=== PATIENT | male | born 1970 | race Hispanic/Latino ===

== ENCOUNTER 2017-08-22 08:41 | Outpatient (CLI) | payer BC ==
--- NOTE | 2017-08-22 11:55 | XRay Report ---
XRAY LEFT KNEE 4 THREE VIEWS: 08/22/17 CLINICAL: Left knee pain. FINDINGS: Mild osteopenia. No fracture or dislocation. The joint spaces are normal. No joint effusion.Normal soft tissues. IMPRESSION: Mild osteopenia and otherwise normal.
== END 2017-08-22 08:42 | disposition home or self-care (01) ==
LOC: SPVIMAG 08:41
PROVIDERS: ATTEND Orthopaedic Surgery
DX: M85.862 Other specified disorders of bone density and structure, left lower leg (principal)